=== PATIENT | female | born 1940 | race Caucasian/White ===

== ENCOUNTER → 2017-02-23 | Outpatient (CLI) | payer MEDICARE, OTHER ==
[~2017-02-23] MED LIST: ASPIRIN LO-DOSE81 MG PO; BYDUREON P2 MG/0.65 SUB-Q; DITROPAN XL10 MG PO; JANUMET XR 1001 EACH PO; LIPITOR40 MG PO; PROZAC20 MG PO
== END ==
LOC: EDSTATUS 02-18 → GOPD 02-18 → GRAD 09:27
DX: N64.4 Mastodynia (principal); N63 Unspecified lump in breast; Z85.3 Personal history of malignant neoplasm of breast; Z92.3 Personal history of irradiation
CPT/HCPCS: A9577; C8908; J2001; J2250; J7030